=== PATIENT | male | born 1975 | race Two or more races ===

== ENCOUNTER 2020-11-17 22:47 | Emergency (ER) | payer SELFPAY ==
[~2020-11-17] VITALS: Ht 170.2 cm; Wt 76.0 kg
[2020-11-17 22:52] VITALS: BP 150/84
[2020-11-18] MEDS ORDERED: LIDOCAINE 1%, 10ML INFIL ONE (00:30)
[2020-11-18] MEDS ORDERED: LIDOCAINE-MPF 1%, 5ML ONE ×2 (00:46→00:53)
== END 2020-11-18 01:57 | disposition home or self-care (01) ==
LOC: ED 11-18 01:00
DX: L05.01 Pilonidal cyst with abscess (principal)
CPT/HCPCS: 10080; 99283